=== PATIENT | female | born 1945 | race African-American/Black ===

== ENCOUNTER 2016-09-29 19:01 | Emergency (ER) | payer MEDICARE, MEDICAID ==
[~2016-09-29] VITALS: Ht 167.6 cm; Wt 68.0 kg
[2016-09-29 19:11] VITALS: BP 149/78
[2016-09-29] MEDS ORDERED: levETIRAcetam 500mg/NS100ml 100 ML IVPB ONE (19:15)
--- NOTE | 2016-09-29 19:18 | Emergency Room Report ---
History of Present Illness General Chief Complaint: Seizure Source: Patient, Medical Record, EMS Present Illness HPI Is a 70-year-old female with multiple medical problem including seizure. She is a DO NOT RESUSCITATE from group home. She presents with chief complaint of seizure. Witnessed by group home. Tonic-clonic for a few minutes. Mild postictal period. No trauma. No tongue laceration. Narcotic bowel or urine. Similar symptom in the past. She takes Vimpat and Keppra. Allergies: Coded Allergies: No Known Allergies (Unverified , 09/29/16) Patient History Past Medical History: see triage record, old chart reviewed, HTN, CVA/TIA, dementia, seizures Past Surgical History: other Pertinent Family History: none Social History: Denies: smoking Now: No Immunizations: other Reviewed Nursing Documentation: PMH: Agreed, PSxH: Agreed Nursing Documentation-PMH Hx Hypertension: Yes History Of Psychiatric Problem: Yes - Encephalopathy; Major depressive disorder Hx Seizures: Yes Review of Systems Eye: Denies: blurred vision, eye pain ENT: Denies: ear pain, nose congestion, throat swelling Respiratory: Denies: cough, shortness of breath Cardiovascular: Denies: chest pain, palpitations Gastrointestinal: Denies: abdominal pain, diarrhea, nausea, vomiting Musculoskeletal: Denies: back pain, joint pain Skin: Denies: rash Neurological: Denies: headache, numbness Endocrine: Denies: increased thirst, increased urine Hematologic/Lymphatic: Denies: easy bruising All Other Systems: negative except mentioned in HPI Physical Exam Vital Signs Date Time Temp Pulse Resp B/P Pulse Ox O2 Delivery O2 Flow Rate FiO2 09/29/16 19:02 98.8 80 16 163/81 98 Room Air vitals with hypertension Sp02 EP Interpretation: reviewed, normal General Appearance: well appearing, alert, Chronically Ill Head: normocephalic, atraumatic Eyes: bilateral eye EOMI, bilateral eye PERRL ENT: hearing grossly normal, normal pharynx Neck: full range of motion, supple, no meningismus Respiratory: chest non-tender, lungs clear, normal breath sounds Cardiovascular #1: regular rate, rhythm, no murmur Gastrointestinal: normal bowel sounds, non tender, no mass, no organomegaly, no bruit, non-distended Musculoskeletal: back normal, normal range of motion Neurologic: grossly normal Psychiatric: mood/affect normal Skin: warm/dry Medical Decision Making Diagnostic Impression: Primary Impression: Epileptic seizure, generalized Additional Impressions: UTI (urinary tract infection) Qualified Codes: N30.00 - Acute cystitis without hematuria Proteinuria Qualified Codes: R80.9 - Proteinuria, unspecified ER Course Presents with seizure. Probably secondary to infection lower her seizure threshold. She is otherwise stable. Labs unremarkable. We'll send her back to group home. Dose of Keppra given here. Lab Results Impression labs unremarkable Last Vital Signs Date Time Temp Pulse Resp B/P Pulse Ox O2 Delivery O2 Flow Rate FiO2 09/29/16 19:11 98.8 73 23 149/78 98 Room Air Status: improved Disposition: ER SNF Condition: Stable Scripts Cephalexin* (KEFLEX*) 500 Mg Capsule 500 MG ORAL TID, #21 CAP 0 Refills Prov: MIGUEL RICHARD M.D. 09/29/16 Patient Instructions: Seizure, Adult Additional Instructions: Followup with your Dr. in 7 days. Return if worse. MIGUEL RICHARD M.D. Sep 29, 2016 19:18
[2016-09-29 19:46] LABS: BASOPHILS % (AUTO) 1.4 % (0.0-2.0); EOSINOPHILS % (AUTO) 2.4 % (0.0-3.0); LYMPHOCYTES % (AUTO) 12.4 % (20.0-45.0); MEAN CORPUSCULAR HEMOGLOBIN 26.4 PG (27.0-31.0); MEAN CORPUSCULAR VOLUME 82 FL (80-99); MEAN PLATELET VOLUME 7.2 FL (6.5-10.1); MONOCYTES % (AUTO) 9.2 % (1.0-10.0); NEUTROPHILS % (AUTO) 74.7 % (45.0-75.0); PLATELET COUNT 218 K/UL (150-450); RED CELL DISTRIBUTION WIDTH 13.5 % (11.6-14.8); WHITE BLOOD COUNT 9.3 K/UL (4.8-10.8)
[2016-09-29 20:03] LABS: ANION GAP 14 (5-15); CALCIUM 9.8 mg/dL (8.6-10.2); CARBON DIOXIDE 24 mEQ/L (20-30); CHLORIDE 101 mEQ/L (98-107); CREATININE 0.9 mg/dL (0.5-0.9); GLOMERULAR FILTRATION RATE > 60 mL/min (>60); HEMOLYSIS 81; POTASSIUM 4.3 mEQ/L (3.4-4.9); SODIUM 139 mEQ/L (135-145)
[2016-09-29 20:06] LABS: APPEARANCE,URINE CLOUDY
[2016-09-29 20:07] LABS: KETONES,URINE NEGATIVE (NEGATIVE); LEUKOCYTE ESTERASE ,URINE 1+ (NEGATIVE); NITRITE,URINE NEGATIVE (NEGATIVE); PROTEIN,URINE 3+ (NEGATIVE); UROBILINOGEN,URINE NORMAL MG/DL (0.0-1.0)
[2016-09-29 20:11] LABS: BACTERIA,URINE FEW /HPF; GRANULAR CASTS,URINE 0-2 /LPF; RBC,URINE 30-40 /HPF (0 - 2); SQUAMOUS EPITHELIAL CELL,UR FEW /LPF (NONE/OCC)
[2016-09-29] MEDS ORDERED: cefTRIAXone 1 GM in NS 55 ML IVPB ONE (20:45)
[2016-09-29] MEDS ORDERED: KEFLEX500 MG ORAL (21:19)
[2016-09-29 21:49] VITALS: BP 138/72
[2016-09-29 21:53] VITALS: BP 138/72
== END 2016-09-29 21:54 ==
LOC: EDBD 19:01 → EMR 19:53
DX: G40.409 Other generalized epilepsy and epileptic syndromes, not intractable, without status epilepticus (principal); N30.00 Acute cystitis without hematuria; R80.9 Proteinuria, unspecified; I10 Essential (primary) hypertension; F32.9 Major depressive disorder, single episode, unspecified; Z86.73 Personal history of transient ischemic attack (TIA), and cerebral infarction without residual deficits; F03.90 Unspecified dementia, unspecified severity, without behavioral disturbance, psychotic disturbance, mood disturbance, and anxiety; Z66 Do not resuscitate
CPT/HCPCS: 36415; 80048; 81001; 85025; 96374; 96375; 99284; J0696; J1953

== ENCOUNTER 2016-12-19 10:07 | Emergency (ER) | payer MEDICARE, MEDICAID ==
[~2016-12-19] VITALS: Ht 165.1 cm; Wt 59.0 kg
[~2016-12-19 10:07] MED LIST: KEFLEX500 MG ORAL
[2016-12-19] MEDS ORDERED: LEVETIRACETAM500 MG ORAL (10:13)
[2016-12-19] MEDS ORDERED: VIMPAT200 MG PO (10:13)
[2016-12-19] MEDS ORDERED: BENZTROPINE MESY2 MG ORAL (10:13)
[2016-12-19 10:15] VITALS: BP 173/84
[2016-12-19] MEDS ORDERED: ATIVAN2 MG/1 ML IM (10:18)
[2016-12-19] MEDS ORDERED: DOCUSATE SODIU250 MG ORAL (10:18)
[2016-12-19] MEDS ORDERED: VITAMIN D1000 UNI1 ORAL (10:18)
[2016-12-19] MEDS ORDERED: ATENOLOL25 MG ORAL (10:18)
[2016-12-19] MEDS ORDERED: FOSAMAX70 MG ORAL (10:21)
[2016-12-19] MEDS ORDERED: MULTIVITAMINS1 EAC8 ORAL (10:26)
[2016-12-19] MEDS ORDERED: SENNA8.6 M2 PO (10:26)
--- NOTE | 2016-12-19 10:41 | Emergency Room Report ---
History of Present Illness General Chief Complaint: Altered Level of Consciousness Source: Patient, Medical Record Present Illness HPI 71-year-old female history of hypertension, diabetes, seizures, on Vimpat and Keppra, presenting with seizure. Patient states that she does not recall event , however EMS stated that alf witnessed seizure, no known trauma or fall, patient was postictal upon arrival Patient is now awake alert, oriented x2, not complaining of any headache neck pain fever chills nausea vomiting chest pain or shortness of breath Allergies: Coded Allergies: No Known Allergies (Unverified , 09/29/16) Patient History Past Medical History: see triage record Past Surgical History: none Pertinent Family History: none Reviewed Nursing Documentation: PMH: Agreed, PSxH: Agreed Nursing Documentation-PMH Hx Hypertension: Yes History Of Psychiatric Problem: Yes Hx Seizures: Yes Review of Systems All Other Systems: negative except mentioned in HPI Physical Exam Vital Signs Date Time Temp Pulse Resp B/P (MAP) Pulse Ox O2 Delivery O2 Flow Rate FiO2 12/19/16 09:59 98.2 100 16 182/98 100 Room Air Sp02 EP Interpretation: reviewed, normal General Appearance: normal inspection, well appearing, no apparent distress, alert, GCS 15, non-toxic Head: normocephalic, atraumatic Eyes: bilateral eye normal inspection, bilateral eye PERRL, bilateral eye EOMI ENT: normal ENT inspection, normal pharynx, normal voice, moist mucus membranes Neck: normal inspection, full range of motion, supple Respiratory: normal inspection, lungs clear, normal breath sounds, no respiratory distress, no retraction, no wheezing, speaking full sentences, chest symmetrical Cardiovascular #1: normal inspection, regular rate, rhythm, no edema, normal capillary refill Cardiovascular #2: 2+ radial (R), 2+ radial (L) Gastrointestinal: normal inspection, non tender, soft, non-distended, no guarding Musculoskeletal: normal inspection, back normal, normal range of motion, non- tender Neurologic: normal inspection, alert, responsive, medical review coordinator III-XII nml as tested, motor strength/tone normal, sensory intact, speech normal, other - oritned to person and place Psychiatric: normal inspection, judgement/insight normal, memory normal Skin: normal inspection, normal color, no rash, warm/dry, well hydrated, normal turgor Medical Decision Making Diagnostic Impression: Primary Impression: History of seizure Additional Impression: UTI (urinary tract infection) ER Course 71-year-old female with known seizure disorder presented with seizure DDX: Likely from primary seizure, no history of any trauma to suggest acute intracranial bleed Rule out electrolyte abnormalities Rule out trigger such as infection UTI pneumonia Plan: Obtain labs, ua, ucx, ucg, CXR, EKG ER course: Patient has remained stable during ED stay. Was found to have UTI, ceftriaxone given Patient remains awake alert, no seizures in the emergency room, vital signs stable Disposition: Patient discharged to alf facility At this time there is no indication for admission to the hospital, patient has UTI and is able to tolerate by mouth antibiotics. Furthermore there are no seizures in the emergency room, slight white count however vital signs normal No altered mental status Stable for transfer back to alf facility Please note that this Emergency Department Report was dictated using [employer] enrollment specialist technology software, occasionally this can lead to erroneous entry secondary to interpretation by the dictation equipment EKG Diagnostic Results EP Interpretation: Yes Rate: normal Rhythm: NSR ST Segments: T-wave flattening in aVL and 1, V5 ASA given to patient: No Rhythm Strip EP Interpretation: Yes Rate: 93 Rhythm: NSR, no PVCs, no ectopy Chest X-ray CXR: Ordered: Yes 1 view Indication: AMS EP interpretation: Yes Interpretation: No consolidation, no effusion, no PTX, no acute cardiopulmonary disease Impression: No acute disease Electronically signed by Gigi Kraus MD Laboratory Tests Test 12/19/16 10:20 12/19/16 11:37 White Blood Count 14.3 K/UL (4.8-10.8) H Red Blood Count 5.31 M/UL (4.20-5.40) Hemoglobin 13.4 G/DL (12.0-16.0) Hematocrit 43.4 % (37.0-47.0) Mean Corpuscular Volume 82 FL (80-99) Mean Corpuscular Hemoglobin 25.2 PG (27.0-31.0) L Mean Corpuscular Hemoglobin Concent 30.8 G/DL (32.0-36.0) L Red Cell Distribution Width 12.9 % (11.6-14.8) Platelet Count 255 K/UL (150-450) Mean Platelet Volume 6.4 FL (6.5-10.1) L Neutrophils (%) (Auto) % (45.0-75.0) Lymphocytes (%) (Auto) % (20.0-45.0) Monocytes (%) (Auto) % (1.0-10.0) Eosinophils (%) (Auto) % (0.0-3.0) Basophils (%) (Auto) % (0.0-2.0) Differential Total Cells Counted 100 Neutrophils % (Manual) 91 % (45-75) H Lymphocytes % (Manual) 2 % (20-45) L Monocytes % (Manual) 7 % (1-10) Eosinophils % (Manual) 0 % (0-3) Basophils % (Manual) 0 % (0-2) Band Neutrophils 0 % (0-8) Platelet Estimate Adequate Platelet Morphology Normal Red Blood Cell Morphology Normal Sodium Level 138 MMOL/L (136-145) Potassium Level 3.3 MMOL/L (3.5-5.1) L Chloride Level 103 MMOL/L (98-107) Carbon Dioxide Level 25 MMOL/L (21-32) Anion Gap 10 (5-15) Blood Urea Nitrogen 20 mg/dL (7-18) H Creatinine 1.0 MG/DL (0.55-1.30) Estimate Glomerular Filtration Rate > 60 mL/min (>60) Glucose Level 117 MG/DL (74-106) H Calcium Level 10.2 MG/DL (8.5-10.1) H Total Bilirubin 0.5 MG/DL (0.2-1.0) Aspartate Amino Transferase (AST) 13 U/L (15-37) L Alanine Aminotransferase (ALT) 13 U/L (12-78) Alkaline Phosphatase 87 U/L (46-116) Total Creatine Kinase 60 U/L (26-308) Creatine Kinase MB 0.7 NG/ML (0.0-3.6) Creatine Kinase MB Relative Index 1.1 Troponin I 0.021 ng/mL (0.000-0.056) Total Protein 8.7 G/DL (6.4-8.2) H Albumin 4.2 G/DL (3.4-5.0) Globulin 4.5 g/dL Albumin/Globulin Ratio 0.9 (1.0-2.7) L Urine Color Pale yellow Urine Appearance Slightly cloudy Urine pH 7 (4.5-8.0) Urine Specific [place] 1.010 (1.005-1.035) Urine Protein 3+ (NEGATIVE) H Urine Glucose (UA) Negative (NEGATIVE) Urine Ketones 2+ (NEGATIVE) H Urine Occult Blood 4+ (NEGATIVE) H Urine Nitrite Negative (NEGATIVE) Urine Bilirubin Negative (NEGATIVE) Urine Urobilinogen 1 MG/DL (0.0-1.0) H Urine Leukocyte Esterase 3+ (NEGATIVE) H Urine RBC 5-10 /HPF (0 - 2) H Urine WBC 40-60 /HPF (0 - 2) H Urine Squamous Epithelial Cells Few /LPF (NONE/OCC) Urine Bacteria Few /HPF (NONE) Last Vital Signs Date Time Temp Pulse Resp B/P (MAP) Pulse Ox O2 Delivery O2 Flow Rate FiO2 12/19/16 09:59 98.2 100 16 182/98 100 Room Air Disposition: XFER SNF Condition: Improved Scripts Cephalexin* (KEFLEX*) 500 Mg Capsule 500 MG ORAL EVERY 6 HOURS for 7 Days, #28 CAP 0 Refills Prov: Gigi Kraus M.D. 12/19/16 Gigi Kraus M.D. Dec 19, 2016 10:41
[2016-12-19 10:51] LABS: MEAN CORPUSCULAR HEMOGLOBIN 25.2 PG (27.0-31.0); MEAN CORPUSCULAR HGB CONC 30.8 G/DL (32.0-36.0); MEAN CORPUSCULAR VOLUME 82 FL (80-99); MEAN PLATELET VOLUME 6.4 FL (6.5-10.1); PLATELET COUNT 255 K/UL (150-450); RED BLOOD COUNT 5.31 M/UL (4.20-5.40); RED CELL DISTRIBUTION WIDTH 12.9 % (11.6-14.8); WHITE BLOOD COUNT 14.3 K/UL (4.8-10.8)
[2016-12-19 11:02] LABS: ALANINE AMINOTRANSFERASE 13 U/L (12-78); ALBUMIN/GLOBULIN RATIO 0.9 (1.0-2.7); ANION GAP 10 (5-15); ASPARTATE AMINO TRANSFERASE 13 U/L (15-37); CALCIUM 10.2 MG/DL (8.5-10.1); CARBON DIOXIDE 25 MMOL/L (21-32); CHLORIDE 103 MMOL/L (98-107); CKMB 0.7 NG/ML (0.0-3.6); GLOMERULAR FILTRATION RATE > 60 mL/min (>60); POTASSIUM 3.3 MMOL/L (3.5-5.1); SODIUM 138 MMOL/L (136-145); TOTAL PROTEIN 8.7 G/DL (6.4-8.2)
[2016-12-19 11:50] LABS: APPEARANCE,URINE SLIGHTLY CLOUDY; KETONES,URINE 2+ (NEGATIVE); LEUKOCYTE ESTERASE ,URINE 3+ (NEGATIVE); NITRITE,URINE NEGATIVE (NEGATIVE); PH,URINE 7 (4.5-8.0); PROTEIN,URINE 3+ (NEGATIVE); UROBILINOGEN,URINE 1 MG/DL (0.0-1.0)
[2016-12-19 11:50] LABS: BAND NEUTROPHILS % (MANUAL) 0 % (0-8); BASOPHILS % (MANUAL) 0 % (0-2); EOSINOPHILS % (MANUAL) 0 % (0-3); LYMPHOCYTES % (MANUAL) 2 % (20-45); NEUTROPHILS % (MANUAL) 91 % (45-75); PLATELET ESTIMATE ADEQUATE; TOTAL CELLS COUNTED 100
[2016-12-19 11:51] LABS: PLATELET MORPHOLOGY NORMAL
[2016-12-19 11:58] LABS: BACTERIA,URINE FEW /HPF; SQUAMOUS EPITHELIAL CELL,UR FEW /LPF (NONE/OCC); WBC,URINE 40-60 /HPF (0 - 2)
--- NOTE | 2016-12-19 12:18 | Diagnostic Imaging Report ---
Indication: Chest pain Technique: One view of the chest Comparison: none Findings: No acute infiltrates, effusions, or congestion. Tortuous calcified aorta. Normal heart size. Upper mediastinum unremarkable. There are questionably granulomatous jayna calcifications in the left pulmonary hilum Impression: No acute process. Questionable old granulomatous disease
[2016-12-19] MEDS ORDERED: levETIRAcetam 1,500 MG in D5W 95 ML IVPB ONE (13:00)
[2016-12-19] MEDS ORDERED: cefTRIAXone 1 GM in NS 55 ML IVPB ONE (13:00)
[2016-12-19] MEDS ORDERED: CEPHALEXIN500 MG ORAL (13:24)
[2016-12-19] MEDS ORDERED: levETIRAcetam 500mg vial IV ONE (13:26)
[2016-12-19 14:30] VITALS: BP 158/92
--- NOTE | 2016-12-31 08:44 | Cardiology Report ---
APPROVED REPORT EKG Measurement Heart [id number] Normal sinus rhythm Nonspecific T wave abnormality Abnormal ECG
== END 2016-12-19 14:30 ==
LOC: EDBD 10:07 → EMR 11:15
DX: R56.9 Unspecified convulsions (principal); N39.0 Urinary tract infection, site not specified; R40.4 Transient alteration of awareness; I10 Essential (primary) hypertension; Z86.69 Personal history of other diseases of the nervous system and sense organs; E11.9 Type 2 diabetes mellitus without complications; Z79.899 Other long term (current) drug therapy
CPT/HCPCS: 36415; 71010; 80053; 81003; 82550; 82553; 84484; 85007; 85025; 87086; 87181; 93005; 96365; 96366; 99284; J0696; J1953

== ENCOUNTER 2017-01-18 23:41 | Emergency (ER) | payer MEDICARE, MEDICAID ==
[~2017-01-18] VITALS: Ht 160 cm; Wt 63.5 kg
[~2017-01-18 23:41] MED LIST changes: +ATENOLOL25 MG ORAL; +ATIVAN2 MG/1 ML IM; +BENZTROPINE MESY2 MG ORAL; +CEPHALEXIN500 MG ORAL; +DOCUSATE SODIU250 MG ORAL; +FOSAMAX70 MG ORAL; +LEVETIRACETAM500 MG ORAL; +MULTIVITAMINS1 EAC8 ORAL; +SENNA8.6 M2 PO; +VIMPAT200 MG PO; +VITAMIN D1000 UNI1 ORAL
[2017-01-18 23:45] VITALS: BP 132/78
[2017-01-19 00:23] LABS: BASOPHILS % (AUTO) 0.9 % (0.0-2.0); EOSINOPHILS % (AUTO) 2.7 % (0.0-3.0); KETONES,URINE 2+ (NEGATIVE); LYMPHOCYTES % (AUTO) 17.8 % (20.0-45.0); MEAN CORPUSCULAR HEMOGLOBIN 25.8 PG (27.0-31.0); MEAN CORPUSCULAR HGB CONC 31.6 G/DL (32.0-36.0); MEAN CORPUSCULAR VOLUME 82 FL (80-99); MEAN PLATELET VOLUME 6.7 FL (6.5-10.1); MONOCYTES % (AUTO) 14.8 % (1.0-10.0); NEUTROPHILS % (AUTO) 63.8 % (45.0-75.0); NITRITE,URINE NEGATIVE (NEGATIVE); PH,URINE 6.5 (4.5-8.0); PLATELET COUNT 185 K/UL (150-450); PROTEIN,URINE 1+ (NEGATIVE); RED BLOOD COUNT 4.64 M/UL (4.20-5.40); RED CELL DISTRIBUTION WIDTH 13.2 % (11.6-14.8); UROBILINOGEN,URINE 1 MG/DL (0.0-1.0); WHITE BLOOD COUNT 7.3 K/UL (4.8-10.8)
[2017-01-19 00:31] LABS: ANION GAP 11 mmol/L (5-15); APPEARANCE,URINE SLIGHTLY CLOUDY; CARBON DIOXIDE 30 MMOL/L (21-32); CHLORIDE 105 MMOL/L (98-107); GLOMERULAR FILTRATION RATE > 60 mL/min (>60); LEUKOCYTE ESTERASE ,URINE 2+ (NEGATIVE); POTASSIUM 3.2 MMOL/L (3.5-5.1); SODIUM 146 MMOL/L (136-145)
[2017-01-19 00:32] LABS: BACTERIA,URINE FEW /HPF; SQUAMOUS EPITHELIAL CELL,UR FEW /LPF (NONE/OCC); WBC,URINE 20-30 /HPF (0 - 2)
[2017-01-19 00:36] LABS: ALANINE AMINOTRANSFERASE 18 U/L (12-78); ALBUMIN/GLOBULIN RATIO 0.9 (1.0-2.7); ASPARTATE AMINO TRANSFERASE 12 U/L (15-37)
[2017-01-19] MEDS ORDERED: LORazepam Inj 2mg/ml 1ml IV ONE (01:15)
[2017-01-19] MEDS ORDERED: Haloperidol 5mg/ml Inj IM ONE (01:30)
[2017-01-19 01:39] VITALS: BP 147/78
[2017-01-19] MEDS ORDERED: levETIRAcetam 1,500 MG in D5W 95 ML IVPB ONE (02:15)
[2017-01-19] MEDS ORDERED: levETIRAcetam 500mg vial IV ONE (02:22)
[2017-01-19] MEDS ORDERED: QUETIAPINE FUMA25 MG ORAL (03:12)
[2017-01-19] MEDS ORDERED: TRAZODONE HCL50 MG ORAL (03:12)
[2017-01-19 03:23] VITALS: BP 157/91
--- NOTE | 2017-01-19 04:32 | Emergency Room Report ---
History of Present Illness General Chief Complaint: Behavioral Complaint Source: Medical Record Present Illness HPI 71-year-old female presents to ED for evaluation. Patient brought from longterm facility. EMS states that patient was behaving in an aggressive manner , throwing objects and screaming and nursing staff. Patient has done this in the past. Patient does have a history of seizures but there is no reported seizure activity today. Patient states she feels fine now. States that she did not recall behaving in this manner at the long term. Denies any fevers chills. Denies chest pain shortness of breath. No other aggravating relieving factors. Denies any other associated symptoms Allergies: Coded Allergies: No Known Allergies (Unverified , 09/29/16) Patient History Past Medical History: HTN, seizures Past Surgical History: none Pertinent Family History: none Social History: Denies: smoking, alcohol use, drug use Last Menstrual Period: n/a Now: No Immunizations: UTD Reviewed Nursing Documentation: PMH: Agreed, PSxH: Agreed Nursing Documentation-PMH Past Medical History: No History, Except For Hx Hypertension: Yes Hx Seizures: Yes - epilepsy Review of Systems All Other Systems: negative except mentioned in HPI Physical Exam Vital Signs Date Time Temp Pulse Resp B/P (MAP) Pulse Ox O2 Delivery O2 Flow Rate FiO2 01/18/17 23:31 98.1 98 16 132/78 96 Room Air Sp02 EP Interpretation: reviewed, normal General Appearance: no apparent distress, alert, GCS 15, non-toxic Head: normocephalic, atraumatic Eyes: bilateral eye normal inspection, bilateral eye PERRL ENT: hearing grossly normal, normal pharynx, no angioedema, normal voice Neck: full range of motion, supple/symm/no masses Respiratory: chest non-tender, lungs clear, normal breath sounds, speaking full sentences Cardiovascular #1: regular rate, rhythm, no edema Cardiovascular #2: 2+ carotid (R), 2+ carotid (L), 2+ radial (R), 2+ radial (L) , 2+ dorsalis pedis (R), 2+ dorsalis pedis (L) Gastrointestinal: normal bowel sounds, non tender, soft, non-distended, no guarding, no rebound Rectal: deferred Genitourinary: normal inspection, no CVA tenderness Musculoskeletal: back normal, gait/station normal, normal range of motion, non- tender Neurologic: alert, responsive, motor strength/tone normal, sensory intact, speech normal Psychiatric: no suicidal/homicidal ideation Reflexes: 3+ bicep (R), 3+ bicep (L), 3+ tricep (R), 3+ tricep (L), 3+ knee (R) , 3+ knee (L) Skin: normal color, no rash, warm/dry, well hydrated Lymphatic: no adenopathy Medical Decision Making Diagnostic Impression: Primary Impression: Behavioral disorder Additional Impressions: History of seizure UTI (urinary tract infection) Qualified Codes: N39.0 - Urinary tract infection, site not specified ER Course Hospital Course 71-year-old F presents to ED with aggresive behavior at long term. h/o seizure Differential diagnosis includes- postictal, psychosis, sepsis, delerium Clinical course Patient placed on stretcher. Initial history and physical I ordered labs, IV fluids Labs-electrolytes okay, no leukocytosis noted, hemoglobin/hematocrit stable. UA + bacteria Patient is initially calm and cooperative. Patient then suddenly became very aggressive and agitated. Taking and screaming at staff. Patient required Haldol and Ativan for sedation Patient given Keppra IV. Given antibiotics. Given IV fluids Nursing staff at this facility are not comfortable accept the patient under the circumstances. Patient will require admission for psychiatric evaluation because of insurance patient will be transferred to [facility]. I feel this is a highly complex case requiring extensive working including EKG/Rhythm strip, Xray/CT/US, Blood/urine lab work, repeat exams while in ED, and administration of strong opiates/narcotics for pain control, admission to hospital or close patient follow up. Diagnosis - behavioral disorder, h/o seizure, UTI Transferred in serious condition Labs Test 01/19/17 00:10 White Blood Count 7.3 K/UL (4.8-10.8) Red Blood Count 4.64 M/UL (4.20-5.40) Hemoglobin 12.0 G/DL (12.0-16.0) Hematocrit 37.9 % (37.0-47.0) Mean Corpuscular Volume 82 FL (80-99) Mean Corpuscular Hemoglobin 25.8 PG (27.0-31.0) Mean Corpuscular Hemoglobin Concent 31.6 G/DL (32.0-36.0) Red Cell Distribution Width 13.2 % (11.6-14.8) Platelet Count 185 K/UL (150-450) Mean Platelet Volume 6.7 FL (6.5-10.1) Neutrophils (%) (Auto) 63.8 % (45.0-75.0) Lymphocytes (%) (Auto) 17.8 % (20.0-45.0) Monocytes (%) (Auto) 14.8 % (1.0-10.0) Eosinophils (%) (Auto) 2.7 % (0.0-3.0) Basophils (%) (Auto) 0.9 % (0.0-2.0) Urine Color Yellow Urine Appearance Slightly cloudy Urine pH 6.5 (4.5-8.0) Urine Specific [place] 1.010 (1.005-1.035) Urine Protein 1+ (NEGATIVE) Urine Glucose (UA) Negative (NEGATIVE) Urine Ketones 2+ (NEGATIVE) Urine Occult Blood 2+ (NEGATIVE) Urine Nitrite Negative (NEGATIVE) Urine Bilirubin Negative (NEGATIVE) Urine Urobilinogen 1 MG/DL (0.0-1.0) Urine Leukocyte Esterase 2+ (NEGATIVE) Urine RBC 5-10 /HPF (0 - 2) Urine WBC 20-30 /HPF (0 - 2) Urine Squamous Epithelial Cells Few /LPF (NONE/OCC) Urine Bacteria Few /HPF (NONE) Sodium Level 146 MMOL/L (136-145) Potassium Level 3.2 MMOL/L (3.5-5.1) Chloride Level 105 MMOL/L (98-107) Carbon Dioxide Level 30 MMOL/L (21-32) Anion Gap 11 mmol/L (5-15) Blood Urea Nitrogen 26 mg/dL (7-18) Creatinine 1.0 MG/DL (0.55-1.30) Estimat Glomerular Filtration Rate > 60 mL/min (>60) Glucose Level 104 MG/DL (74-106) Calcium Level 10.0 MG/DL (8.5-10.1) Total Bilirubin 0.3 MG/DL (0.2-1.0) Aspartate Amino Transf (AST/SGOT) 12 U/L (15-37) Alanine Aminotransferase (ALT/SGPT) 18 U/L (12-78) Alkaline Phosphatase 103 U/L (46-116) Total Protein 8.0 G/DL (6.4-8.2) Albumin 3.8 G/DL (3.4-5.0) Globulin 4.2 g/dL Albumin/Globulin Ratio 0.9 (1.0-2.7) Last Vital Signs Date Time Temp Pulse Resp B/P (MAP) Pulse Ox O2 Delivery O2 Flow Rate FiO2 01/19/17 03:23 89 18 157/91 100 Room Air 01/18/17 23:45 98.1 Status: improved Disposition: XFER SHT-TRM HOSP Condition: Serious Referrals: NON PHYSICIAN (PCP) ARIELA HUFFMAN M.D. Jan 19, 2017 04:32
[2017-01-19 04:37] VITALS: BP 129/69
[2017-01-19 04:48] VITALS: BP 129/69
== END 2017-01-19 04:50 | disposition short-term general hospital (02) ==
LOC: EDBD 23:41 → EMR 23:58
DX: F91.9 Conduct disorder, unspecified (principal); N39.0 Urinary tract infection, site not specified; I10 Essential (primary) hypertension; Z86.69 Personal history of other diseases of the nervous system and sense organs
CPT/HCPCS: 36415; 80053; 81003; 85025; 87081; 87086; 87181; 96361; 96372; 96374; 96375; 99285; J1630; J1953; J1956